=== PATIENT | female | born 1995 | race Caucasian/White ===

== ENCOUNTER 2018-01-26 14:07 | Outpatient (CLI) | payer BC ==
--- NOTE | 2018-01-26 18:35 | CT ---
NONCONTRAST ENHANCED CT IMAGES OF ABDOMEN AND PELVIS: Date: 01/26/18 HISTORY: FINDINGS: Noncontrast enhanced CT images of the abdomen and pelvis demonstrate the lung bases to be unremarkabl e. No evidence of free intraperitoneal air seen. The liver and spleen are unremarkable. The gallbladder has been surgically removed. The pancreas is u nremarkable. Adrenal glands and kidneys are unremarkable. No evidence of renal calculi seen. No dilated loops of small bowel seen. A normal appendix is visualized. No evidence of pelvic masses or lesions seen. IMPRESSION: No evidence of renal calculi seen. POS: [facility]
== END 2018-01-26 14:08 | disposition home or self-care (01) ==
LOC: BICCT 14:07
PROVIDERS: ATTEND Urology
DX: N20.0 Calculus of kidney (principal)
CPT/HCPCS: 74176; 81001; 87086